=== PATIENT | female | born 1975 ===

== ENCOUNTER 2022-10-11 22:05 | Inpatient (IN) | payer OTHER ==
[2022-10-11] MEDS ORDERED: LORazepam 1 MG TAB PO PRN (22:10)
[2022-10-11] MEDS ORDERED: MAGNESIUM HYDROXIDE 2,400 MG/10 ML CUP PO PRN (22:10)
[2022-10-11] MEDS ORDERED: LORazepam 2 MG/ML INJ IM PRN (22:10)
[2022-10-11] MEDS ORDERED: HALOPERIDOL LACTATE 5 MG/ML 1 ML VIAL IM PRN (22:10)
[2022-10-11] MEDS ORDERED: ACETAMINOPHEN TAB 325 MG TAB PO PRN (22:10)
[2022-10-11] MEDS ORDERED: haloperidoL 5 MG TAB PO PRN (22:10)
[2022-10-11] MEDS ORDERED: MAG HYDROX/AL HYDROX/SIMETH 30 ML CUP PO PRN (22:10)
[2022-10-12 02:50] VITALS: RESP 16
[2022-10-12] MEDS ORDERED: FLUoxetine HCL 20 MG CAP PO SCH (09:00)
[2022-10-12] MEDS ORDERED: NICOTINE 14MG/24HR PATCH TRANSDERM SCH (09:00)
[2022-10-12] MEDS ORDERED: lamoTRIgine 100 MG TAB PO SCH (09:00)
[2022-10-12 12:45] LABS: Basophils % (A) 0 %; Eosinophils % (A) 0 %; HCT 47.6 % (34.0-46.0); HGB 15.4 gm/dL (11.4-16.0); Lymphocytes # (A) 1.5 k/uL (1.0-4.8); Lymphocytes % (A) 19 %; MCH 29.5 pg (25.0-35.0); MCHC 32.4 g/dL (31.0-37.0); MCV 91.1 fL (80.0-100.0); Mean Platelet Volume 8.5; Monocytes # (A) 0.5 k/uL (0-1.0); Monocytes % (A) 6 %; Neutrophils # (A) 5.4 k/uL (1.3-7.7); Neutrophils % (A) 72 %; Platelet Count 255 k/uL (150-450); RBC 5.23 m/uL (3.80-5.40); RDW 12.3 % (11.5-15.5); WBC 7.5 k/uL (3.8-10.6)
[2022-10-12 12:56] LABS: ALT 22 U/L (4-34); AST 22 U/L (14-36); African American GFR (CKD) >90 (>60 ml/min/1.73 sqM); Albumin 4.4 g/dL (3.5-5.0); Alkaline Phosphatase 66 U/L (38-126); Anion Gap 7 mmol/L; Blood Urea Nitrogen 19 mg/dL (7-17); Calcium 9.8 mg/dL (8.4-10.2); Carbon Dioxide 32 mmol/L (22-30); Chloride 98 mmol/L (98-107); Glucose 106 mg/dL (74-99); Non-African American GFR(CKD) 84 (>60 ml/min/1.73 sqM); Potassium 4.8 mmol/L (3.5-5.1); Sodium 137 mmol/L (137-145); Total Protein 7.4 g/dL (6.3-8.2)
--- NOTE | 2022-10-12 13:38 | P.HP ---
Psychiatric H&P - . H&P Date: 10/12/22 History & Physical: Allergies Allergy/AdvReac Type Severity Reaction Status Date / Time No Known Allergies Allergy Verified 10/11/22 22:09 Vital Signs Temp 98.0 F 10/12/22 02:33 Pulse 80 10/12/22 02:33 Resp 16 10/12/22 02:33 BP 101/63 10/12/22 02:33 Pulse Ox 93 L 10/12/22 02:33 FiO2 Intake & Output 10/11/22 10/12/22 10/12/22 18:59 06:59 18:59 Weight 68.039 kg Laboratory Last Values WBC 7.5 k/uL (3.8-10.6) 10/12/22 12:05 RBC 5.23 m/uL (3.80-5.40) 10/12/22 12:05 Hgb 15.4 gm/dL (11.4-16.0) 10/12/22 12:05 Hct 47.6 % (34.0-46.0) H 10/12/22 12:05 MCV 91.1 fL (80.0-100.0) 10/12/22 12:05 MCH 29.5 pg (25.0-35.0) 10/12/22 12:05 MCHC 32.4 g/dL (31.0-37.0) 10/12/22 12:05 RDW 12.3 % (11.5-15.5) 10/12/22 12:05 Plt Count 255 k/uL (150-450) 10/12/22 12:05 MPV 8.5 10/12/22 12:05 Neutrophils % 72 % 10/12/22 12:05 Lymphocytes % 19 % 10/12/22 12:05 Monocytes % 6 % 10/12/22 12:05 Eosinophils % 0 % 10/12/22 12:05 Basophils % 0 % 10/12/22 12:05 Neutrophils # 5.4 k/uL (1.3-7.7) 10/12/22 12:05 Lymphocytes # 1.5 k/uL (1.0-4.8) 10/12/22 12:05 Monocytes # 0.5 k/uL (0-1.0) 10/12/22 12:05 Eosinophils # 0.0 k/uL (0-0.7) 10/12/22 12:05 Basophils # 0.0 k/uL (0-0.2) 10/12/22 12:05 Sodium 137 mmol/L (137-145) 10/12/22 12:05 Potassium 4.8 mmol/L (3.5-5.1) 10/12/22 12:05 Chloride 98 mmol/L (98-107) 10/12/22 12:05 Carbon Dioxide 32 mmol/L (22-30) H 10/12/22 12:05 Anion Gap 7 mmol/L 10/12/22 12:05 BUN 19 mg/dL (7-17) H 10/12/22 12:05 Creatinine 0.83 mg/dL (0.52-1.04) 10/12/22 12:05 Est GFR (CKD-EPI)AfAm >90 (>60 ml/min/1.73 sqM) 10/12/22 12:05 Est GFR (CKD-EPI)NonAf 84 (>60 ml/min/1.73 sqM) 10/12/22 12:05 Glucose 106 mg/dL (74-99) H 10/12/22 12:05 Calcium 9.8 mg/dL (8.4-10.2) 10/12/22 12:05 Total Bilirubin 1.0 mg/dL (0.2-1.3) 10/12/22 12:05 AST 22 U/L (14-36) 10/12/22 12:05 ALT 22 U/L (4-34) 10/12/22 12:05 Alkaline Phosphatase 66 U/L (38-126) 10/12/22 12:05 Total Protein 7.4 g/dL (6.3-8.2) 10/12/22 12:05 Albumin 4.4 g/dL (3.5-5.0) 10/12/22 12:05 TSH 1.010 mIU/L (0.465-4.680) 10/12/22 12:05 10/12/22 13:37 IDENTIFYING DATA: Patient is a , employed, 47-year-old female who was transferred from [facility] for psychiatric admission after an intentional overdose. HPI: Patient presented to the hospital on 10/05/2022, brought to [facility] after a suspected overdose. The patient was reportedly found to be laying in her bed by her boyfriend at her apartment complex. He saw through the window and was noted to be not responding. Found next to the patient or bottles of Seroquel and hydroxyzine. Furthermore, there was a cord wrapped around the pat ient's neck. Patient was subsequently stabilized at [facility] and transferred to [facility] for psychiatric treatment. Upon evaluation on the psychiatric unit, the patient doesn't admit that she attempted suicide by overdose and by wrapping a cord around her neck. The patient reports that she has been feeling increasingly depressed for the past week with feelings of excessive guilt, crying episodes, low mood, and feelings of hopelessness. She does report that she has had 2 prior attempts at suicide with the last time being by overdose in 2018. She does report that she has been experiencing significant financial stressors including difficulty with finding a new place, and requiring a new vehicle. The patient does report a significant history of bipolar 2 disorder. She does endorse significant symptoms of hypomania including racing thoughts, mood lability, and excessive spending. The patient states that she has been impulsively spending $300-$500 every week by constantly moving between a motel and an extended stay apartment. The patient reports that she is doing this out of impulse and is unable to identify any particular reason why. She also reports previously going 3-4 days with little to no sleep. The patient does not endorse any auditory or visual hallucinations. She denies any paranoia or other delusions. Patient reports occasional marijuana use and r are alcohol use. She denies any illicit drug use. She is agreeable to voluntarily signing herself into the psychiatric unit. PAST PSYCHIATRIC HISTORY: Patient states that she has been previously diagnosed with bipolar 2 disorder. The patient's home medication regimen included Seroquel, Prozac, Lamictal, and hydroxyzine. She recalls being previously prescribed lithium and BuSpar in the past. The patient reports that she has had 1 previous psychiatric admission in 2019. Patient denies any psychiatric outpatient follow-up. She does report 2 prior attempts at suicide. PMH: No reported medical history. ALLERGIES: NO KNOWN DRUG ALLERGIES CHEMICAL DEPENDENCY HISTORY: The patient reports no tobacco use. She reports rare alcohol use. She reports occasional marijuana use. She denies any illicit drug use. FAMILY PSYCHIATRIC/SUBSTANCE USE HISTORY: The patient reports that her maternal cousin is schizophrenic. She also reports that her maternal grandmother was bipolar. She denies any significant family history of suicide. SOCIAL HISTORY: Patient was born in [place], [place] and raised in [place], [place]. She is as of 2003 after being for 3 years. She has 1 son named Gregory was 20 years old and is currently living with his grandfather. She reports that her son is currently attending [employer] for [employer]. She currently lives with her boyfriend Jam whom she has been with for the past 10 years. 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 She reports no legal issues. She denies any episcopal affiliation. MENTAL STATUS EXAM: General Appearance: Patient appears to be stated age is alert, directable, and attempts to cooperate. Patient appears to have mildly disheveled hygiene and grooming. Behavior: Patient is seated without any agitated behavior. Eye contact is appropriate. Speech: Patient's speech is slightly pressured, hyperverbal, often repetitive. Mood/Affect: Patient reports their mood is "just been down," affect is congruent, depressed, and bothered. Suicidality/Homicidality: Patient reports suicidal ideation but denies any homicidal ideation. Perceptions: Patient denies any visual hallucinations and denies any auditory hallucinations Though content/process: There is no evidence of any delusional thought content and thought process is linear and goal-directed. Memory and concentration: AOX3, grossly intact for the purposes of this session. Can spell "WORLD" backwards Judgment and insight: Fair STRENGTHS/WEAKNESSES: strength is that patient is resilient. Weakness is that patient has significant symptoms of bipolar hypomania. INTELLECT: average IMPRESSIONS: Bipolar 2 disorder, mixed episode Cannabis abuse PLAN: -Patient is admitted under voluntary status to [facility] for stabilization of psychiatric symptoms and safety. Patient signed adult voluntary form and medication consent and is placed in patient's chart. -Medications : Will start patient on Lamictal 75 mg by mouth at bedtime for mood stabilization Zyprexa 5 mg by mouth at bedtime for bipolar depression Prozac 30 mg by mouth daily for depression/anxiety -Ativan and Haldol PRN for agitation/aggression -Patient was counselled on substance abuse and desired to cut back on use -Patient was informed of the risks, benefits and side effects of the medication and patient verbally consented to taking the medications. Patient signed med consent form and was placed in chart. -Internal Medicine consult to perform medical evaluation and physical. -SW on board for discharge planning. Encourage patient to participate in groups to work on coping skills. EKG and labs from [facility] were unremarkable. 10/12/22 13:38
[2022-10-12 20:08] LABS: Chol/HDL Ratio 3.29 Ratio
[2022-10-12] MEDS ORDERED: lamoTRIgine 25 MG TAB PO SCH (21:00)
[2022-10-12] MEDS ORDERED: OLANZapine ODT 5 MG TAB PO SCH (21:00)
--- NOTE | 2022-10-13 01:05 | P.CONS ---
History of Present Illness - Reason for Consult Consult date: 10/13/22 - History of Present Illness The patient is a 47-year-old female with a PMH of bipolar disorder who was transferred from a [facility] where the patient was initially admitted after an intentional overdose. The patient states that she had been feeling down about her life that she currently is renting a room with her boyfriend. She also has a job that she does not like. She reportedly took 6-7 Seroquel t ablets. She reports recreational marijuana use. Denied tobacco or alcohol use. Reportedly at her baseline at the time of interview. Denies fainting chest discomfort, shortness of breath, fever, chills, cough. Review of systems: Pertinent positives and negatives as discussed in HPI, a complete review of systems was performed and all other systems are negative. Physical examination: General: non toxic, no distress, appears at stated age, normal weight Derm: no unusual rashes/lesions, no unusual ecchymoses, warm, dry Head: atraumatic, normocephalic, symmetric Eyes: EOMI, no lid lag, anicteric sclera ENT: Nose and ears atraumatic, no thrush, no pharyngeal erythema Neck: trachea midline, supple Mouth: no lip lesion, mucus membranes moist Cardiovascular: S1S2 reg, no murmur, no edema Lungs: CTA bilateral, no rhonchi, no rales , no accessory muscle use Abdominal: soft, nontender to palpation, no guarding Ext: no gross muscle atrophy, no contractures, Neuro: No gross focal neuro deficits noted Psych: Alert, oriented, appropriate affect Assessment: Marijuana abuse Intentional overdose with Seroquel Depression with suicidal ideation Data Review: Laboratory evaluation was reviewed with WBC count 7.5, hemoglobin 15.4, sodium 137, potassium 4.8, CO2 32, BUN 19, creatinine 0.83, with HDL 70. Plan: Advised on the importance of cessation for marijuana use Defer management of depression and suicidal ideation to the primary psychiatry service Thank you for allowing us to participate in the care of this patient. We will follow peripherally. Do not hesitate to contact us with questions. Someone can be reached from the [facility] hospitalist group at all hours of the day at [phone]. Past Medical History Past Medical History: No Reported History History of Any Multi-Drug Resistant Organisms: None Reported Past Surgical History: No Surgical Hx Reported Past Anesthesia/Blood Transfusion Reactions: No Reported Reaction Past Psychological History: Depression Additional Psychological History / Comment(s): pt reports being on a mental health unit once before Smoking Status: Never smoker Past Alcohol Use History: Rare Past Drug Use History: None Reported Medications and Allergies Home Medications Medication Instructions Recorded Confirmed Type FLUoxetine HCL 20 mg PO DAILY 10/12/22 10/12/22 History QUEtiapine [SEROquel] 50 mg PO HS 10/12/22 10/12/22 History hydrOXYzine HCL [Hydroxyzine HCl] 10 mg PO TID PRN 10/12/22 10/12/22 History lamoTRIgine 100 mg PO DAILY 10/12/22 10/12/22 History Allergies Allergy/AdvReac Type Severity Reaction Status Date / Time No Known Allergies Allergy Verified 10/11/22 22:09 Physical Exam Vitals: Vital Signs Temp Pulse Resp BP Pulse Ox 10/12/22 02:33 98.0 F 80 16 101/63 93 L Results CBC & Chem 7: 10/12/22 12:05 10/12/22 12:05 Labs: Abnormal Lab Results - Last 24 Hours (Table) 10/12/22 10/12/22 Range/Units 12:05 12:05 Hct 47.6 H (34.0-46.0) % Carbon Dioxide 32 H (22-30) mmol/L BUN 19 H (7-17) mg/dL Glucose 106 H (74-99) mg/dL Cholesterol 230.00 H mg/dL LDL Cholesterol, Calc 132.0 H mg/dL HDL Cholesterol 70.00 H mg/dL
[2022-10-13 07:10] VITALS: BP 97/55; PULSE 77; TEMP 97.9
[2022-10-13] MEDS ORDERED: FLUoxetine HCL 10 MG CAP PO SCH (09:00)
--- NOTE | 2022-10-13 11:43 | P.DS ---
Providers Date of admission: 10/11/22 22:05 Expected date of discharge: 10/13/22 Attending physician: Marques Morrison MD Consults: 10/11/22 22:10 Consult Physician Routine Consulting Provider: Gilbert Rivera Consult Reason/Comments: medical H&P Do you want consulting provider notified?: Yes Primary care physician: Stated None - Discharge Diagnosis(es) (1) Bipolar II disorder, severe, hypomanic, with mixed features, in partial remission Current Visit: Yes Status: Acute Priority: High (2) Cannabis abuse Current Visit: Yes Status: Chronic Priority: Medium Hospital Course: Admission HPI: Patient is a , employed, 47-year-old female who was transferred from [facility] for psychiatric admission after an intentional overdose. Patient presented to the hospital on 10/05/2022, brought to [facility] after a suspected overdose. The patient was reportedly found to be laying in her bed by her boyfriend at her apartment complex. He saw through the window and was noted to be not responding. Found next to the patient or bottles of Seroquel and hydroxyzine. Furthermore, there was a cord wrapped around the patient's neck. Patient was subsequently stabilized at [facility] and transferred to [facility] for psychiatric treatment. Upon evaluation on the psychiatric unit, the patient doesn't admit that she attempted suicide by overdose and by wrapping a cord around her neck. The patient reports that she has been feeling increasingly depressed for the past week with feelings of excessive guilt, crying episodes, low mood, and feelings of hopelessness. She does report that she has had 2 prior attempts at suicide with the last time being by overdose in 2018. She does report that she has been experiencing significant financial stressors including difficulty with finding a new place, and requiring a new vehicle. The patient does report a significant history of bipolar 2 disorder. She does endorse significant symptoms of hypomania including racing thoughts, mood lability, and excessive spending. The patient states that she has been impulsively spending $300-$500 every week by constantly moving between a motel and an extended stay apartment. The patient reports that she is doing this out of impulse and is unable to identify any particular reason why. She also reports previously going 3-4 days with little to no sleep. The patient does not endorse any auditory or visual hallucinations. She denies any paranoia or other delusions. Patient reports occasional marijuana use and rare alcohol use. She denies any illicit drug use. She is agreeable to voluntarily signing herself into the psychiatric unit. Patient states that she has been previously diagnosed with bipolar 2 disorder. The patient's home medication regimen included Seroquel, Prozac, Lamictal, and hydroxyzine. She recalls being previously prescribed lithium and BuSpar in the past. The patient reports that she has had 1 previous psychiatric admission in 2019. Patient denies any psychiatric outpatient follow-up. She does report 2 prior attempts at suicide. Hospital course: Upon admission to the unit patient was initially presenting was slightly pressured and hyperverbal speech and endorsing significant symptoms of depression. Patient was however directable and agreeable to commence treatment. Patient got along well with other patients on the unit and followed unit protocol. Patient was compliant with the medications and denied any side effects throughout hospital course. Patient was started on her home medication of Lamictal and was started on Zyprexa and Prozac for management of bipolar depression. Patient spoke of her stressors and engaged in therapy both group and individual. Patient was also seen by medical team for history and physical exam. Over the course of hospitalization, the patient displayed significant improvement in regards to mood stability and depression. She became more future and goal oriented. She participated in groups and worked on assigned individual homework. She also displayed an improvement in regards to her sleep and appetite. On the day of discharge, the patient is not reporting any suicidal or homicidal ideation, intention, and/or plan. The patient is not reporting any auditory or visual hallucinations. She is denying any paranoia or other delusions. She reports no access to firearms or other weapons. The patient stresses that she is upset with discharge as she is uncertain as to her housing situation. She is however not reporting any significant criteria for continued inpatient psychiatric admission. The patient does not have a significant history of substance abuse however was counseled great length on abstaining from all substances including alcohol, tobacco, marijuana, and all illicit drugs. She is future and goal oriented stating that she would like to return back to work tomorrow if she is unable to stay in the hospital. The patient was counseled at length the importance of medication adherence and appropriate outpatient follow-up. Prior to discharge, a meeting will be arranged by social work instructor transit any questions, help with transportation, and ensure safety. Mental status exam: General Appearance: Patient appears to be stated age is alert, pleasant, and cooperative. Patient is in no acute distress and has fair hygiene and grooming Behavior: Patient is calmly seated without any agitated behavior. Speech: Patient's speech is fluent and nonpressured. Mood/Affect: Patient reports their mood is "I don't think I'm ready to go home yet", affect is euthymic. Suicidality/Homicidality: Patient denies having any suicidal or homicidal ideation intent or plan. Perceptions: Patient denies any auditory or visual hallucinations. Though content/process: There is no evidence of any delusional thought content and thought process is linear and goal-directed. Patient is future oriented. Memory and concentration: AOX3, grossly intact for the purposes of this session. Can spell "WORLD" backwards correctly. Judgment and insight: Improved with guarded prognosis Impression: Bipolar 2 disorder, mixed episode Cannabis abuse Plan: -Continue with discharge today as patient has improved and stabilized psychiatrically and is not currently an imminent threat to herself and/or others. Patient will remain at chronically elevated risk due to her prior attempts at suicide and her current housing situation. -Continue medications: Lamictal 75 mg by mouth at bedtime for mood stabilization Zyprexa 5 mg by mouth at bedtime for bipolar depression Prozac 40 mg by mouth daily for depression/anxiety -Patient was counseled on the need for medication compliance and appropriate follow-up at mental health and also primary care for medical issues. Patient verbalized understanding and agreed. -Social work to arrange for and conduct family meeting to ensure safety upon discharge and answer any questions/concerns. Social work also to arrange for patients follow up appointments for psychiatric care along with follow up with primary care provider. -Patient counseled on abstaining from recreational drugs and marijuana and alcohol. Was informed/educated on the adverse effects on their physical and mental health. Patient verbally agreed and understood. -Patient was instructed to return to the hospital or seek immediate medical care if their psychiatric or medical symptoms do worsen or reoccur. -Psychoeducation and supportive therapy provided to patient. Risks and benefits of pharmacological treatment versus the risks and benefits of nontreatment weighed and discussed. Informed consent discussion held. Common side effects of psychotropics discussed such as, but not limited to headache, GI disturbance, sexual dysfunction, movement disorders, sedation, and orthostatic hypotension. Life threatening and blackbox warnings of prescribed medications also discussed. Potential risks of operating a vehicle or heavy machinery discussed with patient at length. Advised on importance of compliance and a reliable and responsible manner. Patient advised to review FDA consumer labeling of all medications prior to taking. Patient verbalized understanding of potential risks, and agrees with current treatment plan. Patient advised to medically contact physician/emergency personnel if any acute changes in condition occur. Vital Signs Temp 97.9 F 10/13/22 06:44 Pulse 77 10/13/22 06:44 Resp 16 10/13/22 06:44 BP 97/55 10/13/22 06:44 Pulse Ox 93 L 10/12/22 02:33 FiO2 Laboratory Results WBC 7.5 k/uL (3.8-10.6) 10/12/22 12:05 RBC 5.23 m/uL (3.80-5.40) 10/12/22 12:05 Hgb 15.4 gm/dL (11.4-16.0) 10/12/22 12:05 Hct 47.6 % (34.0-46.0) H 10/12/22 12:05 MCV 91.1 fL (80.0-100.0) 10/12/22 12:05 MCH 29.5 pg (25.0-35.0) 10/12/22 12:05 MCHC 32.4 g/dL (31.0-37.0) 10/12/22 12:05 RDW 12.3 % (11.5-15.5) 10/12/22 12:05 Plt Count 255 k/uL (150-450) 10/12/22 12:05 MPV 8.5 10/12/22 12:05 Neutrophils % 72 % 10/12/22 12:05 Lymphocytes % 19 % 10/12/22 12:05 Monocytes % 6 % 10/12/22 12:05 Eosinophils % 0 % 10/12/22 12:05 Basophils % 0 % 10/12/22 12:05 Neutrophils # 5.4 k/uL (1.3-7.7) 10/12/22 12:05 Lymphocytes # 1.5 k/uL (1.0-4.8) 10/12/22 12:05 Monocytes # 0.5 k/uL (0-1.0) 10/12/22 12:05 Eosinophils # 0.0 k/uL (0-0.7) 10/12/22 12:05 Basophils # 0.0 k/uL (0-0.2) 10/12/22 12:05 Sodium 137 mmol/L (137-145) 10/12/22 12:05 Potassium 4.8 mmol/L (3.5-5.1) 10/12/22 12:05 Chloride 98 mmol/L (98-107) 10/12/22 12:05 Carbon Dioxide 32 mmol/L (22-30) H 10/12/22 12:05 Anion Gap 7 mmol/L 10/12/22 12:05 BUN 19 mg/dL (7-17) H 10/12/22 12:05 Creatinine 0.83 mg/dL (0.52-1.04) 10/12/22 12:05 Est GFR (CKD-EPI)AfAm >90 (>60 ml/min/1.73 sqM) 10/12/22 12:05 Est GFR (CKD-EPI)NonAf 84 (>60 ml/min/1.73 sqM) 10/12/22 12:05 Glucose 106 mg/dL (74-99) H 10/12/22 12:[address] Glu mg/dL 120 mg/dL 10/12/22 12:05 Hemoglobin A1c 5.8 % 10/12/22 12:05 Calcium 9.8 mg/dL (8.4-10.2) 10/12/22 12:05 Total Bilirubin 1.0 mg/dL (0.2-1.3) 10/12/22 12:05 AST 22 U/L (14-36) 10/12/22 12:05 ALT 22 U/L (4-34) 10/12/22 12:05 Alkaline Phosphatase 66 U/L (38-126) 10/12/22 12:05 Total Protein 7.4 g/dL (6.3-8.2) 10/12/22 12:05 Albumin 4.4 g/dL (3.5-5.0) 10/12/22 12:05 Triglycerides 140.00 mg/dL 10/12/22 12:05 Cholesterol 230.00 mg/dL H 10/12/22 12:05 LDL Cholesterol, Calc 132.0 mg/dL H 10/12/22 12:05 VLDL Cholesterol, Calc 28.00 mg/dL 10/12/22 12:05 HDL Cholesterol 70.00 mg/dL H 10/12/22 12:05 Cholesterol/HDL Ratio 3.29 Ratio 10/12/22 12:05 TSH 1.010 mIU/L (0.465-4.680) 10/12/22 12:05 Allergies Allergy/AdvReac Type Severity Reaction Status Date / Time No Known Allergies Allergy Verified 10/11/22 22:09 Patient Condition at Discharge: Stable Plan - Discharge Summary New Discharge Prescriptions: New lamoTRIgine [LaMICtal] 75 mg PO HS 15 Days #45 tab FLUoxetine HCL [PROzac] 40 mg PO DAILY 15 Days #15 cap Discontinued FLUoxetine HCL 20 mg PO DAILY hydrOXYzine HCL [Hydroxyzine HCl] 10 mg PO TID PRN PRN Reason: Anxiety lamoTRIgine 100 mg PO DAILY QUEtiapine [SEROquel] 50 mg PO HS Discharge Medication List FLUoxetine HCL [PROzac] 40 mg PO DAILY 15 Days #15 cap 10/13/22 [Rx] lamoTRIgine [LaMICtal] 75 mg PO HS 15 Days #45 tab 10/13/22 [Rx] Discharge Disposition: HOME SELF-CARE
[2022-10-13] MEDS ORDERED: OLANZapine ODT 5 MG TAB PO SCH (21:00)
== END 2022-10-13 14:05 | disposition home or self-care (01) | DRG 885 ==
LOC: 3MHU 22:05
PROVIDERS: ADMIT Psychiatry & Neurology Psychiatry; ATTEND Psychiatry & Neurology Psychiatry
DX: F31.0 Bipolar disorder, current episode hypomanic (principal); F12.10 Cannabis abuse, uncomplicated; Z71.51 Drug abuse counseling and surveillance of drug abuser; F41.9 Anxiety disorder, unspecified; T43.592A Poisoning by other antipsychotics and neuroleptics, intentional self-harm, initial encounter; Z79.899 Other long term (current) drug therapy; Z63.5 Disruption of family by separation and divorce; Z91.51 Personal history of suicidal behavior; Z59.811 Housing instability, housed, with risk of homelessness; R45.1 Restlessness and agitation
CPT/HCPCS: 80053; 80061; 83036; 84443; 85025